=== PATIENT | male | born 1985 | race American Indian/Alaskan Native ===

== ENCOUNTER 2017-11-16 19:11 | Emergency (ER) | payer SELFPAY ==
[2017-11-16 20:21] VITALS: BP 114/65
--- NOTE | 2017-11-16 22:24 | Emergency Department Report ---
ED Back Pain/Injury HPI - General Chief Complaint: Back Pain/Injury Stated Complaint: BACK PAIN Time Seen by Provider: 11/16/17 22:15 Source: patient Limitations: No Limitations - History of Present Illness Initial Comments: 32-year-old -[place] male nontoxic comes in for complaint of back pain for 2 weeks. Patient reports that he has pain mostly on the left shoulder blade area. He reports that a year ago he had an injury with extending the left arm and has had pain that sometimes will come back. Patient reports that he told his job that he was having a little bit of back pain in needed a few hours before coming to work and they reported to him that he needs to have paperwork filled out for him to return back to work. Patient reports that the pain is not that serious that it does respond to ibuprofen. Patient reports that he works at [employer] and is often working in the [employer] where he is using his hands and lifting. Patient denies any limitations to doing his job. 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 He has no other past medical history currently takes no medications on a daily basis and has no known drug allergies. -: week(s) (2) Similar Symptoms Previously: Yes Place: work Radiation: none Severity: mild Severity scale (0 -10): 4 Quality: sharp Consistency: intermittent Improves With: medication Associated Symptoms: denies: numbness, difficulty urinating, incontinence, fever /chills - Related Data Previous Rx's Medication Instructions Recorded Last Taken Type Baclofen [Lioresal] 10 mg PO TID #20 tab 11/16/17 Unknown Rx Ibuprofen [Motrin 800 MG tab] 800 mg PO Q8HR PRN #30 tablet 11/16/17 Unknown Rx Allergies Allergy/AdvReac Type Severity Reaction Status Date / Time No Known Allergies Allergy Unverified 11/16/17 20:20 ED Review of Systems ROS: Stated complaint: BACK PAIN Other details as noted in HPI Constitutional: denies: chills, fever Eyes: denies: eye pain, eye discharge, vision change ENT: denies: ear pain, throat pain Respiratory: denies: cough, shortness of breath, wheezing Cardiovascular: denies: chest pain, palpitations Endocrine: no symptoms reported Gastrointestinal: denies: abdominal pain, nausea, diarrhea Genitourinary: denies: urgency, dysuria Musculoskeletal: back pain (upper back left shoulder blade) Skin: denies: rash, lesions Neurological: denies: headache, weakness, paresthesias Psychiatric: denies: anxiety, depression Hematological/Lymphatic: denies: easy bleeding, easy bruising ED Past Medical Hx - Past Medical History Previous Medical History?: No - Surgical History Past Surgical History?: No - Social History Smoking Status: Current Every Day Smoker Substance Use Type: None - Medications Home Medications: Home Medications Medication Instructions Recorded Confirmed Last Taken Type Baclofen [Lioresal] 10 mg PO TID #20 tab 11/16/17 Unknown Rx Ibuprofen [Motrin 800 MG tab] 800 mg PO Q8HR PRN #30 tablet 11/16/17 Unknown Rx ED Physical Exam - General Limitations: No Limitations General appearance: alert, in no apparent distress - Head Head exam: Present: atraumatic, normocephalic - Eye Eye exam: Present: normal appearance - ENT ENT exam: Present: mucous membranes moist - Neck Neck exam: Present: normal inspection - Respiratory Respiratory exam: Present: normal lung sounds bilaterally. Absent: respiratory distress - Cardiovascular Cardiovascular Exam: Present: regular rate, normal rhythm. Absent: systolic murmur, diastolic murmur, rubs, gallop - Back Exam Back exam: Present: full ROM, muscle spasm. Absent: CVA tenderness (R), CVA tenderness (L), paraspinal tenderness, vertebral tenderness - Neurological Exam Neurological exam: Present: alert, oriented X3 - Psychiatric Psychiatric exam: Present: normal affect, normal mood - Skin Skin exam: Present: warm, dry, intact, normal color. Absent: rash ED Course Vital Signs 11/16/17 20:15 Temperature 98.2 F Pulse Rate 74 Respiratory 14 Rate Blood Pressure 114/65 O2 Sat by Pulse 100 Oximetry ED Medical Decision Making - Medical Decision Making Assessment evaluated by this provider fashion. I discussed the patient I will fill out his paperwork to return back to work. Discussed the patient [facility] if he feels that he needs it. Discussed the patient I will discharge him on baclofen and ibuprofen as he does have some muscle spasms to the right angle of the left trapezius. Patient verbalized understanding Critical care attestation.: If time is entered above; I have spent that time in minutes in the direct care of this critically ill patient, excluding procedure time. ED Disposition Clinical Impression: Muscle spasm, Trigger point of left shoulder region Disposition: DC-01 TO HOME OR SELFCARE Is pt being admited?: No Does the pt Need Aspirin: No Condition: Stable Instructions: Trigger Point Pain (ED), Muscle Spasm (ED) Additional Instructions: He is take medication as prescribed. Follow-up with [facility] if symptoms persist or gets worse. Prescriptions: Baclofen [Lioresal] 10 mg PO TID #20 tab Ibuprofen [Motrin 800 MG tab] 800 mg PO Q8HR PRN #30 tablet PRN Reason: pain Referrals: PRIMARY CARE,MD [Primary Care Provider] - 3-5 Days Forms: Work/School Release Form(ED)
== END 2017-11-16 22:40 | disposition home or self-care (01) ==
LOC: ED 19:11
DX: M62.830 Muscle spasm of back (principal); M25.512 Pain in left shoulder; F17.200 Nicotine dependence, unspecified, uncomplicated
CPT/HCPCS: 99282

== ENCOUNTER 2017-11-17 20:39 | Emergency (ER) | payer OTHER ==
[2017-11-17 23:13] LABS: Basophils # (Auto) 0.1 K/mm3 (0.0-0.1); Basophils % (Auto) 0.8 % (0.0-1.8); Eosinophils # (Auto) 0.2 K/mm3 (0.0-0.4); Eosinophils % (Auto) 3.1 % (0.0-4.3); Hematocrit 44.4 % (35.5-45.6); Hemoglobin 14.9 gm/dl (11.8-15.2); Lymphocytes # (Auto) 2.4 K/mm3 (1.2-5.4); Lymphocytes % (Auto) 38.8 % (13.4-35.0); Mean Corpuscular HGB Conc 34 % (32-34); Mean Corpuscular Hemoglobin 30 pg (28-32); Mean Corpuscular Volume 90 fl (84-94); Monocytes # (Auto) 0.6 K/mm3 (0.0-0.8); Monocytes % (Auto) 9.7 % (0.0-7.3); Red Blood Count 4.92 M/mm3 (3.65-5.03); Red Cell Distribution Width 13.4 % (13.2-15.2)
[2017-11-17 23:18] LABS: Platelet Count 140 K/mm3 (140-440)
[2017-11-17 23:28] LABS: BUN/Creatinine Ratio 7; Blood Urea Nitrogen 6 mg/dL (9-20); Calcium 9.2 mg/dL (8.4-10.2); Hemolysis Index 7
--- NOTE | 2017-11-18 03:14 | Emergency Department Report ---
ED Chest Pain HPI - General Chief Complaint: Chest Pain Stated Complaint: REACTION TO MEDICATION Time Seen by Provider: 11/18/17 01:49 Source: patient, RN notes reviewed, old records reviewed Mode of arrival: Ambulatory Limitations: No Limitations - History of Present Illness Initial Comments: This is a 32-year-old male unknown to this provider previously. He does not have a primary care doctor. He presents to the ER with a complaint of back pain and chest pain that is intermittent over the past week. He reports that at work, his left arm got pulled, and since then he's been having scapular pain. However he also reports that he's been having left parascapular pain and parathoracic pain for years. He reports that intermittently he has left-sided chest wall pain, which does not radiates to the back, arms or neck. He denies shortness of breath, vomiting, diaphoresis. He denies cocaine use, aspirin use, and DVT, pulmonary embolus risk factors. He was seen in this department with cement past few days, and prescribed baclofen which she says intermittently exacerbates his symptoms. MD Complaint: chest pain -: Gradual, days(s) Pain Location: left chest Pain Radiation: none Severity: mild, moderate Severity scale (0 -10): 9 Quality: tightness, aching Consistency: intermittent Improves With: rest Worsens With: other (as per history of present illness) Context: other (per history of present illness) Aspirin use within the Past 7 Days: (0) No - Related Data On Oral Contraceptives: No Previous Rx's Medication Instructions Recorded Last Taken Type Ibuprofen [Motrin 800 MG tab] 800 mg PO Q8HR PRN #30 tablet 11/16/17 Unknown Rx Acetaminophen [Tylenol Arthritis] 650 mg PO Q6HR PRN #30 tablet.er 11/18/17 Unknown Rx Lidocaine [Lidoderm] 1 each TP BID PRN #10 adh..patch 11/18/17 Unknown Rx Allergies Allergy/AdvReac Type Severity Reaction Status Date / Time No Known Allergies Allergy Unverified 11/16/17 20:20 Heart Score - HEART Score History: Slightly suspicious EKG: Non-specific Age: < 45 Risk factors: No known risk factors Troponin: < normal limit HEART Score: 1 - Critical Actions Critical Actions: 0-3 pts:0.9-1.7%risk of adverse cardiac event.Candidate for discharge ED Review of Systems ROS: Stated complaint: REACTION TO MEDICATION Other details as noted in HPI Constitutional: denies: diaphoresis Eyes: denies: vision change ENT: denies: hearing loss, epistaxis Respiratory: denies: cough Cardiovascular: chest pain Gastrointestinal: denies: vomiting Musculoskeletal: back pain Neurological: denies: weakness ED Past Medical Hx - Past Medical History Previous Medical History?: No - Surgical History Past Surgical History?: No - Social History Smoking Status: Current Every Day Smoker Substance Use Type: Marijuana - Medications Home Medications: Home Medications Medication Instructions Recorded Confirmed Last Taken Type Ibuprofen [Motrin 800 MG tab] 800 mg PO Q8HR PRN #30 tablet 11/16/17 Unknown Rx Acetaminophen [Tylenol Arthritis] 650 mg PO Q6HR PRN #30 tablet.er 11/18/17 Unknown Rx Lidocaine [Lidoderm] 1 each TP BID PRN #10 adh..patch 11/18/17 Unknown Rx ED Physical Exam - General Limitations: No Limitations General appearance: alert, in no apparent distress - Head Head exam: Present: atraumatic, normocephalic - Eye Eye exam: Present: normal appearance, EOMI. Absent: nystagmus - ENT ENT exam: Present: normal exam, normal orophraynx, mucous membranes moist, normal external ear exam - Neck Neck exam: Present: normal inspection, full ROM. Absent: tenderness, meningismus - Respiratory Respiratory exam: Present: normal lung sounds bilaterally. Absent: respiratory distress, chest wall tenderness - Cardiovascular Cardiovascular Exam: Present: normal rhythm, bradycardia, normal heart sounds. Absent: systolic murmur, diastolic murmur, rubs, gallop - GI/Abdominal GI/Abdominal exam: Present: soft, normal bowel sounds. Absent: distended, tenderness, guarding, rebound, rigid, pulsatile mass - Rectal Rectal exam: Present: deferred - Extremities Exam Extremities exam: Present: normal inspection, full ROM, normal capillary refill , other (there is no palpable cord. There is a negative Homans sign.). Absent : tenderness, pedal edema, joint swelling, calf tenderness - Back Exam Back exam: Present: normal inspection, full ROM. Absent: tenderness, CVA tenderness (R), paraspinal tenderness, vertebral tenderness - Neurological Exam Neurological exam: Present: alert, oriented X3, CN II-XII intact, normal gait, other (Extraocular movements intact. Tongue midline. No facial droop. Facial sensation intact to light touch in the V1, V2, V3 distribution bilaterally. 5 and 5 strength in 4 extremities.. Sensation is intact to light touch in 4 extremities.). Absent: motor sensory deficit - Psychiatric Psychiatric exam: Present: normal affect, normal mood - Skin Skin exam: Present: warm, dry, intact, normal color. Absent: rash ED Course Vital Signs 11/17/17 11/17/17 11/18/17 21:43 22:15 01:42 Temperature 97.9 F 97.9 F Pulse Rate 56 L 58 L 58 L Respiratory 14 18 Rate Blood Pressure 127/55 127/55 Blood Pressure [Left] O2 Sat by Pulse 99 100 100 Oximetry 11/18/17 11/18/17 11/18/17 01:45 01:50 02:01 Temperature 98.2 F Pulse Rate 65 58 L 58 L Respiratory 15 13 11 L Rate Blood Pressure 123/73 Blood Pressure 130/77 [Left] O2 Sat by Pulse 100 100 98 Oximetry 11/18/17 02:15 Temperature Pulse Rate 67 Respiratory 13 Rate Blood Pressure 123/73 Blood Pressure [Left] O2 Sat by Pulse 98 Oximetry ERIK score - Erik Score Age > 65: (0) No Aspirin use within the Past 7 Days: (0) No 3 or more CAD Risk Factors: (0) No 2 or more Angina events in past 24 hrs: (0) No Known CAD with more than 50% Stenosis: (0) No Elevated Cardiac Markers: (0) No ST Deviation Greater than 0.5mm: (0) No ERIK Score: 0 ED Medical Decision Making - Lab Data Result diagrams: 11/17/17 22:32 11/17/17 22:32 Vital Signs 11/17/17 11/17/17 11/18/17 21:43 22:15 01:42 Temperature 97.9 F 97.9 F Pulse Rate 56 L 58 L 58 L Respiratory 14 18 Rate Blood Pressure 127/55 127/55 Blood Pressure [Left] O2 Sat by Pulse 99 100 100 Oximetry 11/18/17 11/18/17 11/18/17 01:45 01:50 02:01 Temperature 98.2 F Pulse Rate 65 58 L 58 L Respiratory 15 13 11 L Rate Blood Pressure 123/73 Blood Pressure 130/77 [Left] O2 Sat by Pulse 100 100 98 Oximetry 11/18/17 02:15 Temperature Pulse Rate 67 Respiratory 13 Rate Blood Pressure 123/73 Blood Pressure [Left] O2 Sat by Pulse 98 Oximetry Lab Results 11/17/17 11/17/17 11/18/17 Range/Units 22:32 22:32 01:27 WBC 6.3 (4.5-11.0) K/mm3 RBC 4.92 (3.65-5.03) M/mm3 Hgb 14.9 (11.8-15.2) gm/dl Hct 44.4 (35.5-45.6) % MCV 90 (84-94) fl MCH 30 (28-32) pg MCHC 34 (32-34) % RDW 13.4 (13.2-15.2) % Plt Count 140 (140-440) K/mm3 Lymph % (Auto) 38.8 H (13.4-35.0) % [place] % (Auto) 9.7 H (0.0-7.3) % Eos % (Auto) 3.1 (0.0-4.3) % Baso % (Auto) 0.8 (0.0-1.8) % Lymph # 2.4 (1.2-5.4) K/mm3 [place] # 0.6 (0.0-0.8) K/mm3 Eos # 0.2 (0.0-0.4) K/mm3 Baso # 0.1 (0.0-0.1) K/mm3 Seg Neutrophils % 47.6 (40.0-70.0) % Seg Neutrophils # 3.0 (1.8-7.7) K/mm3 Sodium 139 (137-145) mmol/L Potassium 3.5 L (3.6-5.0) mmol/L Chloride 101.6 (98-107) mmol/L Carbon Dioxide 27 (22-30) mmol/L Anion Gap 14 mmol/L BUN 6 L (9-20) mg/dL Creatinine 0.9 (0.8-1.5) mg/dL Estimated GFR > 60 ml/min BUN/Creatinine Ratio 7 % Glucose 87 (75-100) mg/dL Calcium 9.2 (8.4-10.2) mg/dL Troponin T < 0.010 < 0.010 (0.00-0.029) ng/mL - EKG Data -: EKG Interpreted by [place] EKG shows normal: sinus rhythm Rate: normal - EKG Data When compared to previous EKG there are: previous EKG unavailable 11/18/17 04:13 EKG #1 shows sinus, 61 bpm, left axis deviation, right bundle branch block, abnormal EKG, not a STEMI, repeat EKG is unchanged. - Radiology Data Radiology results: report reviewed, image reviewed X-ray of the chest is negative for acute disease - Medical Decision Making Differential diagnosis, including but not limited to: Costochondritis, muscular pain, pneumothorax, pneumonia, acute coronary syndrome, pericarditis, myocarditis Assessment and plan: 32-year-old male, with no pulmonary embolus or DVT risk factors, who is low risk by well's criteria, who is perc negative, who is low risk by ERIK score, low risk by heart score with 1 week of atypical symptoms. He is afebrile with reassuring vital signs; his EKG is abnormal, but the patient is at low risk for major adverse cardiac event. We will discontinue baclofen, he should follow up with outpatient cardiology. Critical care attestation.: If time is entered above; I have spent that time in minutes in the direct care of this critically ill patient, excluding procedure time. ED Disposition Clinical Impression: Abnormal EKG Disposition: DC-01 TO HOME OR SELFCARE Is pt being admited?: No Does the pt Need Aspirin: No Condition: Stable Instructions: Noncardiac Chest Pain (ED) Additional Instructions: Discontinue baclofen. Rest, and avoid heavy lifting and avoid strenuous physical activity. Use acetaminophen as needed for pain, alternating with ibuprofen was prescribed recently. Use lidocaine patch as directed. Follow up withany of the listed cardiology groups within the next 3-5 days. Return to the ER right away with you pain, worsened pain, migration of pain, fevers, chills, lethargy, irritability, projectile vomiting, change in mental status, confusion, inability to tolerate liquid feeds. Referrals: PRIMARY CARE, [Primary Care Provider] - 3-5 Days [facility] [Provider Group] - 3-5 Days [facility] [Provider Group] - 3-5 Days
--- NOTE | 2017-11-18 03:42 | XRay Report ---
FINAL REPORT EXAM: XR CHEST ROUTINE 2V HISTORY: cp TECHNIQUE: PA and lateral views of the chest were submitted. FINDINGS: The lungs are clear. Pleural fluid is not seen. The heart size is normal. The lungs are not congested. The skeletal structures are well-maintained. IMPRESSION: No active chest disease.
[2017-11-18 04:09] VITALS: BP 123/73
== END 2017-11-18 04:42 | disposition home or self-care (01) ==
LOC: ED 20:39
DX: R94.31 Abnormal electrocardiogram [ECG] [EKG] (principal); M54.9 Dorsalgia, unspecified; F17.200 Nicotine dependence, unspecified, uncomplicated; F12.10 Cannabis abuse, uncomplicated
CPT/HCPCS: 36415; 71046; 80048; 84484; 85025; 93005; 93010